=== PATIENT | male | born 1955 | race Caucasian/White ===

== ENCOUNTER 2016-12-05 17:53 | Emergency (ER) | payer OTHER ==
[2016-12-05 19:42] LABS: BASOPHIL 0.6 % (0-2); EOSINOPHIL 1.3 % (0-5); HCT 42.2 % (42.0-52.0); HGB 15.3 g/dl (13.2-18.0); LYMPHOCYTE 22.8 % (15-48); MCH 31.5 pg (25.0-31.0); MCHC 36.3 g/dL (32.0-36.0); MONOCYTE 9.7 % (0-12); MPV 10.6 fL (6.0-9.5); NEUTROPHIL 65.6 % (41-80); PLT 239 K/uL (150-400); RBC 4.85 M/uL (4.70-6.00); RDW 12.4 % (11.5-14.0); WBC 8.3 K/uL (4.0-10.5)
[2016-12-05 19:43] LABS: BILIRUBIN NEGATIVE (NEGATIVE); BLOOD NEGATIVE Ery/uL (NEGATIVE); CLARITY CLEAR (CLEAR); COLOR YELLOW (YELLOW); GLUCOSE (U) NORMAL (NORMAL); KETONE (U) NEGATIVE (NEGATIVE); LEUKOCYTES NEGATIVE Leu/uL (NEGATIVE); NITRITE NEGATIVE (NEGATIVE); PROTEIN NEGATIVE (NEGATIVE); SPECIFIC GRAVITY <=1.005 (1.001-1.030); UROBILINOGEN 0.2 mg/dL (0.2-1.0)
[2016-12-05 20:02] LABS: ALBUMIN 4.2 g/dL (3.4-4.8); BILIRUBIN - TOTAL 0.4 mg/dL (0.1-1.0); CREATININE 0.8 mg/dL (0.7-1.2); GLOBULIN (CALCULATION) 2.4 g/dL (2.2-4.2); POTASSIUM 3.4 mmol/L (3.5-5.1); TOTAL PROTEIN 6.6 g/dL (6.4-8.3)
== END 2016-12-05 22:23 | disposition home or self-care (01) ==
LOC: FER 17:53
PROVIDERS: Emergency Medicine Emergency Medical Services
DX: R10.30 Lower abdominal pain, unspecified (principal); R33.9 Retention of urine, unspecified; R82.90 Unspecified abnormal findings in urine; Z88.0 Allergy status to penicillin
CPT/HCPCS: 36415; 80053; 81003; 82150; 83690; 84152; 85025; 87088; Q9967

== ENCOUNTER 2016-12-18 13:39 | Emergency (ER) | payer OTHER ==
[2016-12-18 14:35] LABS: BASOPHIL 0.1 % (0-2); EOSINOPHIL 0.7 % (0-5); HCT 47.2 % (42.0-52.0); HGB 17.2 g/dl (13.2-18.0); LYMPHOCYTE 2.3 % (15-48); MCHC 36.4 g/dL (32.0-36.0); MCV 87.7 fL (78.0-100.0); MONOCYTE 6.3 % (0-12); MPV 10.3 fL (6.0-9.5); NEUTROPHIL 90.6 % (41-80); PLT 210 K/uL (150-400); RBC 5.38 M/uL (4.70-6.00)
[2016-12-18 14:47] LABS: ALBUMIN 4.5 g/dL (3.4-4.8); BILIRUBIN - TOTAL 0.7 mg/dL (0.1-1.0); CREATININE 0.9 mg/dL (0.7-1.2); GLOBULIN (CALCULATION) 2.4 g/dL (2.2-4.2); POTASSIUM 3.8 mmol/L (3.5-5.1); TOTAL PROTEIN 6.9 g/dL (6.4-8.3)
[2016-12-18 14:51] LABS: WBC 13.7 K/uL (4.0-10.5)
[2016-12-18 15:43] LABS: BILIRUBIN NEGATIVE (NEGATIVE); BLOOD NEGATIVE Ery/uL (NEGATIVE); CLARITY CLEAR (CLEAR); COLOR YELLOW (YELLOW); GLUCOSE (U) NORMAL (NORMAL); KETONE (U) NEGATIVE (NEGATIVE); LEUKOCYTES NEGATIVE Leu/uL (NEGATIVE); NITRITE NEGATIVE (NEGATIVE); PROTEIN 1+ mg/dL (NEGATIVE); SPECIFIC GRAVITY 1.025 (1.001-1.030); UROBILINOGEN 0.2 mg/dL (0.2-1.0); pH 5.5 (5.0-9.0)
[2016-12-18 15:58] LABS: BACTERIA TRACE; SQUAMOUS EPITHELIAL CELLS RARE; URINARY RBC RARE; URINARY WBC RARE
== END 2016-12-18 19:07 | disposition home or self-care (01) ==
LOC: FER 13:39
PROVIDERS: Internal Medicine
DX: S16.1XXA Strain of muscle, fascia and tendon at neck level, initial encounter (principal); S00.93XA Contusion of unspecified part of head, initial encounter; A09 Infectious gastroenteritis and colitis, unspecified; Z88.0 Allergy status to penicillin; W22.8XXA Striking against or struck by other objects, initial encounter
CPT/HCPCS: 36415; 70450; 71010; 72050; 72125; 80053; 81001; 83690; 85025; 87045; 87046; 87205; 87493; 93005; J2405